=== PATIENT | male | born 1995 | race Native Hawaiian/Other Pacific Islander ===

== ENCOUNTER 2022-10-24 13:52 | Emergency (ER) | payer BC ==
--- NOTE | 2022-10-24 14:13 | ED EENT ---
History of Present Illness General Stated Complaint: EYE INFECTION Source: patient Exam Limitations: no limitations History of Present Illness Date Seen by Provider: Oct 24, 2022 Time Seen by Provider: 14:10 Initial Comments Patient Is a 27-year-old male who presents ED with right eyelid swelling and redness and pain. Patient states he noted some redness and swelling this past Thursday. Increased redness and swelling since Thursday. Noted some drainage today. Was seen at [facility] recommended come to ED for further evaluation. Denies of any pain with eye movement. Denies of any specific injury. Denies fever, chills, nausea, vomiting, diarrhea. Concern for abscess to his right upper eyelid. Allergies and Home Medications Allergies Coded Allergies: No Allergy Information Available (Unverified , 10/24/22) Patient Home Medication List Home Medication List Reviewed: Yes Cefdinir (Cefdinir) 300 Mg Capsule, 300 MG PO BID Prescribed by: SINA FERRO on 10/24/22 1604 Sulfamethoxazole/Trimethoprim (Bactrim Ds Tablet) 1 Each Tablet, 1 EACH PO BID Prescribed by: SINA FERRO on 10/24/22 1604 Review of Systems Review of Systems Constitutional: No chills, No diaphoresis, No malaise, No weakness Eyes: Denies Blurred Vision; Drainage; Denies Decreased Acuity; Other (Upper eyelid swelling erythema) Ears: Denies Dizziness, Denies Pain Nose: denies clots, denies congestion Mouth: denies clots, denies loose teeth Throat: denies pain, denies swelling Cardiovascular: No chest pain Gastrointestinal: No abdominal pain, No diarrhea, No nausea, No vomiting Musculoskeletal: No back pain, No gout Skin: change in color, other (right Upper eyelid swelling erythema) Physical Exam Vital Signs Vital Signs - First Documented 10/24/22 14:01 Temp 36.3 Pulse 108 Resp 16 B/P (MAP) 133/93 (106) Pulse Ox 100 O2 Delivery Room Air Height, Weight, BMI Height: '" Weight: lbs. oz. 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 Fluctuant mass inner eyelid with active drainage) Procedures/Interventions I&D : Site: right upper eyelid Blade Size: 11 I & D Procedure: betadine prep Progress Moderate amount of purulent drainage to the right medial upper eyelid. Progress/Results/Core Measures Results/Orders Lab Results Laboratory Tests Test 10/24/22 14:10 Range/Units White Blood Count 12.9 H 4.3-11.0 10^3/uL Red Blood Count 5.71 H 4.30-5.52 10^6/uL Hemoglobin 16.4 13.3-17.7 g/dL Hematocrit 49 40-54 % Mean Corpuscular Volume 86 80-99 fL Mean Corpuscular Hemoglobin 29 25-34 pg Mean Corpuscular Hemoglobin Concent 34 32-36 g/dL Red Cell Distribution Width 12.1 10.0-14.5 % Platelet Count 280 130-400 10^3/uL Mean Platelet Volume 10.6 9.0-12.2 fL Immature Granulocyte % (Auto) 0 % Neutrophils (%) (Auto) 74 42-75 % Lymphocytes (%) (Auto) 19 12-44 % Monocytes (%) (Auto) 5 0-12 % Eosinophils (%) (Auto) 1 0-10 % Basophils (%) (Auto) 1 0-10 % Neutrophils # (Auto) 9.6 H 1.8-7.8 10^3/uL Lymphocytes # (Auto) 2.4 1.0-4.0 10^3/uL Monocytes # (Auto) 0.7 0.0-1.0 10^3/uL Eosinophils # (Auto) 0.2 0.0-0.3 10^3/uL Basophils # (Auto) 0.1 0.0-0.1 10^3/uL Immature Granulocyte # (Auto) 0.0 0.0-0.1 10^3/uL Sodium Level 136 135-145 MMOL/L Potassium Level 3.9 3.6-5.0 MMOL/L Chloride Level 103 98-107 MMOL/L Carbon Dioxide Level 22 21-32 MMOL/L Anion Gap 11 5-14 MMOL/L Blood Urea Nitrogen 13 7-18 MG/DL Creatinine 1.19 0.60-1.30 MG/DL Estimat Glomerular Filtration Rate 85 BUN/Creatinine Ratio 11 Glucose Level 128 H 70-105 MG/DL Calcium Level 9.7 8.5-10.1 MG/DL Corrected Calcium 8.5-10.1 MG/DL Total Bilirubin 0.4 0.1-1.0 MG/DL Aspartate Amino Transf (AST/SGOT) 30 5-34 U/L Alanine Aminotransferase (ALT/SGPT) 49 0-55 U/L Alkaline Phosphatase 96 40-136 U/L Total Protein 8.7 H 6.4-8.2 GM/DL Albumin 4.6 H 3.2-4.5 GM/DL My Orders Orders - MEREDITH CHEN Cbc With Automated Diff (10/24/22 14:07) Comprehensive Metabolic Panel (10/24/22 14:07) Ct Maxillofacial W (10/24/22 14:07) Iohexol Injection (Omnipaque 350 Mg/Ml 1 (10/24/22 14:15) Ns (Ivpb) (Sodium Chloride 0.9% Ivpb Bag (10/24/22 14:15) Iohexol Injection (Omnipaque 350 Mg/Ml 1 (10/24/22 15:00) Received Contrast (Hold Metformin- Contr (10/24/22 15:00) Ns (Ivpb) (Sodium Chloride 0.9% Ivpb Bag (10/24/22 15:00) Wound Culture (10/24/22 15:28) Sulfamethoxazole/Trimet Ds Tab (Bactrim (10/24/22 16:06) Cephalexin Capsule (Keflex Capsule) (10/24/22 16:06) Medications Given in ED Current Medications Medications Dose Ordered Sig/Kalin Route Start Time Stop Time Status Last Admin Dose Admin Iohexol 100 ml ONCE ONCE IV 10/24/22 14:15 10/24/22 14:16 DC 10/24/22 15:16 75 ML Sodium Chloride 100 ml ONCE ONCE IV 10/24/22 14:15 10/24/22 14:16 DC 10/24/22 15:16 80 ML Vital Signs/I&O 10/24/22 10/24/22 14:01 16:26 Temp 36.3 Pulse 108 108 Resp 16 16 B/P (MAP) 133/93 (106) 120/77 Pulse Ox 100 100 O2 Delivery Room Air Room Air Departure Communication (PCP) Patient has redness and swelling to her right upper eyelid. No specific injury. Works at [employer]. Patient Does wear glasses at work. Differential diagnosis, upper eyelid abscess, periorbital cellulitis, orbital cellulitis. On exam he has redness and swelling to the upper eyelid. No lower eyelid swelling. Extraocular movements intact. No evidence erythematous injections. 1cm by 1cm Fluctuant mass noted to the left medial upper eyelid with active drainage. Denies of any visual changes. Differentiate between orbital and periorbital cellulitis CBC, CMP CT orbit was ordered. CBC showed slight elevated white blood count at 12. Chemistry grossly unremarkable. CT scan of the face showed Right periorbital cellulitis with fluid collection suspicious for abscess in the medial aspect of the upper eyelid. Left mastoid effusion and osteitis consistent with chronic inflammation. After examining the eyelid the abscess ruptured. Made a small incision while drainage was occurring. Moderate amount of purlent drainage. Wound culture pending. completely drained the abscess. Irrigated with saline. Left the area open. Patient noted improvement of pain. Patient states he was needing to go and was not able to give a dose of IV antibiotics. Prescribed Bactrim and Keflex oral here. Will discharge with cefdinir and Bactrim to cover MRSA, staph, strep. Recommend ENT follow-up in [address] Navarrete. If increased redness or swelling or pain with eye movement than patient will need to return back to ED. continue allowing drainage. Neosporin twice a day. Impression Primary Impression: Infection of eyelid Additional Impression: Abscess of eyelid Disposition: 01 HOME, SELF-CARE Condition: Stable Departure-Patient Inst. Decision time for Depature: 16:02 Referrals: DARY NAVARRETE MD [facility]/JORGE NO,LOCAL PHYSICIAN (PCP) Primary Care Physician Patient Instructions: Cellulitis (Skin Infection), Adult (DC) Add. Discharge Instructions: If increased redness or swelling need to return back to ED. Follow-up with ENT for further evaluation. Recommend rest. Topical Neosporin twice a day. Keep the area covered for the next 3 to 4 days. Scripts Sulfamethoxazole/Trimethoprim (Bactrim Ds Tablet) 1 Each Tablet 1 EACH PO BID for 7 Days, #14 TAB Prov: MEREDITH CHEN 10/24/22 Cefdinir (Cefdinir) 300 Mg Capsule 300 MG PO BID for 7 Days, #14 CAP Prov: MEREDITH CHEN 10/24/22 Work/School Note: Work Release Form Date Seen in the Emergency Department: Oct 24, 2022 Return to Work: Oct 28, 2022 MEREDITH CHEN Oct 24, 2022 14:13
[2022-10-24] MEDS ORDERED: NS 100 ML (IVPB) BAG IV ONE ×2 (14:15→15:00)
[2022-10-24] MEDS ORDERED: IOHEXOL 350 MG/ML 100 ML (OMNIPAQUE 350) VIAL IV ONE ×2 (14:15→15:00)
[2022-10-24 14:19] LABS: BASOPHILS # (AUTO) 0.1 10^3/uL (0.0-0.1); BASOPHILS % (AUTO) 1 % (0-10); EOSINOPHILS # (AUTO) 0.2 10^3/uL (0.0-0.3); EOSINOPHILS % (AUTO) 1 % (0-10); HEMATOCRIT 49 % (40-54); HEMOGLOBIN 16.4 g/dL (13.3-17.7); LYMPHOCYTES # (AUTO) 2.4 10^3/uL (1.0-4.0); LYMPHOCYTES % (AUTO) 19 % (12-44); MEAN CORPUSCULAR HEMOGLOBIN 29 pg (25-34); MEAN CORPUSCULAR HGB CONC 34 g/dL (32-36); MEAN CORPUSCULAR VOLUME 86 fL (80-99); MEAN PLATELET VOLUME 10.6 fL (9.0-12.2); MONOCYTES # (AUTO) 0.7 10^3/uL (0.0-1.0); MONOCYTES % (AUTO) 5 % (0-12); NEUTROPHILS # (AUTO) 9.6 10^3/uL (1.8-7.8); NEUTROPHILS % (AUTO) 74 % (42-75); PLATELET COUNT 280 10^3/uL (130-400); WHITE BLOOD COUNT 12.9 10^3/uL (4.3-11.0)
[2022-10-24 14:31] LABS: ALBUMIN 4.6 GM/DL (3.2-4.5); CHLORIDE 103 MMOL/L (98-107); POTASSIUM 3.9 MMOL/L (3.6-5.0); SODIUM 136 MMOL/L (135-145)
[2022-10-24 14:32] LABS: CALCIUM 9.7 MG/DL (8.5-10.1)
[2022-10-24 14:33] LABS: GLUCOSE 128 MG/DL (70-105); TOTAL PROTEIN 8.7 GM/DL (6.4-8.2)
[2022-10-24 14:34] LABS: CARBON DIOXIDE 22 MMOL/L (21-32)
[2022-10-24 14:35] LABS: BILIRUBIN,TOTAL 0.4 MG/DL (0.1-1.0)
[2022-10-24 14:36] LABS: ALKALINE PHOSPHATASE 96 U/L (40-136)
[2022-10-24 14:37] LABS: CREATININE SERUM 1.19 MG/DL (0.60-1.30); GFR ESTIMATED 85
[2022-10-24 14:38] LABS: BUN/CREATININE RATIO 11
[2022-10-24 14:40] LABS: ALANINE AMINOTRANSFERASE 49 U/L (0-55)
[2022-10-24] MEDS ORDERED: HOLD METFORMIN - RECEIVED CONTRAST 20 ML VIAL IV SCH (15:00)
--- NOTE | 2022-10-24 15:25 | Diagnostic Imaging Report ---
PROCEDURE: CT maxillofacial with contrast. TECHNIQUE: After intravenous administration of contrast, axial images were obtained through the face and reformatted into coronal and sagittal planes. Auto Exposure Controls were utilized during the CT exam to meet ALARA standards for radiation dose reduction. INDICATION: Orbital cellulitis, right eye. COMPARISON: None. FINDINGS: Soft tissue swelling overlying the right orbit. There is a circumscribed fluid collection in the medial aspect of the upper right eyelid measuring 1.7 x 0.8 cm. No postseptal inflammatory change. Left orbit is negative. No radiopaque foreign bodies. Osseous structures are intact. Multiple dental caries and periapical lucencies. No fractures. Left mastoid effusion and osteitis. IMPRESSION: 1. Right periorbital cellulitis with fluid collection suspicious for abscess in the medial aspect of the upper eyelid. 2. Left mastoid effusion and osteitis consistent with chronic inflammation. 3. Multiple dental caries and periapical lucencies. Dictated by: Dictated on workstation # [id number]
[2022-10-24] MEDS ORDERED: CEFD300C3 PO (16:04)
[2022-10-24] MEDS ORDERED: SULF1TAB38 PO (16:04)
[2022-10-24] MEDS ORDERED: TRIM/SULFAMETH 160/800 (SEPTRA DS) TAB PO STA (16:06)
[2022-10-24] MEDS ORDERED: CEPHALEXIN 250 MG (KEFLEX) CAP PO STA (16:06)
[2022-10-24 16:26] VITALS: BP 120/77
== END 2022-10-24 16:26 | disposition home or self-care (01) ==
LOC: ER 13:55
DX: H00.031 Abscess of right upper eyelid (principal); L03.213 Periorbital cellulitis; M86.9 Osteomyelitis, unspecified
CPT/HCPCS: 36415; 70487; 80053; 85025; 87070; 87077; 87205

== ENCOUNTER 2023-03-03 17:30 | Observation (INO) | payer BC ==
[~2023-03-03] VITALS: Ht 170 cm; Wt 71.6 kg
[~2023-03-03 17:30] MED LIST: CEFD300C3 PO; SULF1TAB38 PO
--- NOTE | 2023-03-03 18:07 | ED EENT ---
History of Present Illness General Chief Complaint: Oral/Throat Problems Stated Complaint: UPPER LIP ANOMALY Nursing Triage Note: PT UPPER LIP SWOLLEN, RED, DRAINING IN 3 PLACES. MOTHER PRESENT AND STATES IT STARTED SWELLING 4-5 DAYS AGO Source: patient, family Exam Limitations: language barrier History of Present Illness Date Seen by Provider: Mar 03, 2023 Time Seen by Provider: 17:45 Initial Comments 27-year-old male presents to the ER with swelling and drainage to his upper lip. States it started out small last and now has significant swelling. Denies known fevers. Patient was found to have a low-grade fever here. Denies known injury. Patient does have poor dentition. Denies any significant past medical history. Patient was seen here in October of this year for an abscess to his right eyelid. Allergies and Home Medications Allergies Coded Allergies: No Allergy Information Available (Unverified , 10/24/22) Patient Home Medication List Home Medication List Reviewed: Yes Cefdinir (Cefdinir) 300 Mg Capsule, 300 MG PO BID Prescribed by: SINA FERRO on 10/24/22 1604 Sulfamethoxazole/Trimethoprim (Bactrim Ds Tablet) 1 Each Tablet, 1 EACH PO BID Prescribed by: SINA FERRO on 10/24/22 1604 Review of Systems Review of Systems Constitutional: see HPI Past Alazyma-Zixozs-Jprnyk Hx Immunizations Up To Date Influenza Vaccine Up-to-Date: Yes; Up-to-Date Physical Exam Vital Signs Vital Signs - First Documented 03/03/23 17:40 Temp 38.0 Pulse 93 Resp 18 B/P (MAP) 129/88 (102) Pulse Ox 96 O2 Delivery Room Air Height, Weight, BMI Height: '" Weight: lbs. oz. kg; 28.00 BMI Method: General Appearance: WD/WN, no apparent distress Mouth/Throat: other (Abscess to left upper lip, large area of swelling, area of fluctuation, and area of induration, erythema also noted above lip. Poor dentition, multiple cavities) Neck: supple, normal inspection Cardiovascular: regular rate, rhythm Respiratory: lungs clear, normal breath sounds, no respiratory distress, no accessory muscle use Neurologic/Psychiatric: alert, normal mood/affect Skin: normal color, warm/dry Progress/Results/Core Measures Results/Orders Lab Results Laboratory Tests Test 10/24/23 18:10 Range/Units White Blood Count 19.2 H 4.3-11.0 10^3/uL Red Blood Count 4.98 4.30-5.52 10^6/uL Hemoglobin 14.4 13.3-17.7 g/dL Hematocrit 42 40-54 % Mean Corpuscular Volume 85 80-99 fL Mean Corpuscular Hemoglobin 29 25-34 pg Mean Corpuscular Hemoglobin Concent 34 32-36 g/dL Red Cell Distribution Width 12.3 10.0-14.5 % Platelet Count 300 130-400 10^3/uL Mean Platelet Volume 10.8 9.0-12.2 fL Immature Granulocyte % (Auto) 1 % Neutrophils (%) (Auto) 76 H 42-75 % Lymphocytes (%) (Auto) 12 12-44 % Monocytes (%) (Auto) 7 0-12 % Eosinophils (%) (Auto) 4 0-10 % Basophils (%) (Auto) 1 0-10 % Neutrophils # (Auto) 14.5 H 1.8-7.8 10^3/uL Lymphocytes # (Auto) 2.4 1.0-4.0 10^3/uL Monocytes # (Auto) 1.3 H 0.0-1.0 10^3/uL Eosinophils # (Auto) 0.9 H 0.0-0.3 10^3/uL Basophils # (Auto) 0.1 0.0-0.1 10^3/uL Immature Granulocyte # (Auto) 0.1 0.0-0.1 10^3/uL Neutrophils % (Manual) 75 % Lymphocytes % (Manual) 13 % Monocytes % (Manual) 4 % Eosinophils % (Manual) 8 % Blood Morphology Comment NORMAL Erythrocyte Sedimentation Rate 78 H 0-15 MM/HR Sodium Level 135 135-145 MMOL/L Potassium Level 3.1 L 3.6-5.0 MMOL/L Chloride Level 98 98-107 MMOL/L Carbon Dioxide Level 25 21-32 MMOL/L Anion Gap 12 5-14 MMOL/L Blood Urea Nitrogen 10 7-18 MG/DL Creatinine 1.08 0.60-1.30 MG/DL Estimat Glomerular Filtration Rate 96 BUN/Creatinine Ratio 9 Glucose Level 115 H 70-105 MG/DL Lactic Acid Level 0.87 0.50-2.00 MMOL/L Calcium Level 9.7 8.5-10.1 MG/DL Corrected Calcium 9.7 8.5-10.1 MG/DL Total Bilirubin 0.6 0.1-1.0 MG/DL Aspartate Amino Transf (AST/SGOT) 96 H 5-34 U/L Alanine Aminotransferase (ALT/SGPT) 213 H 0-55 U/L Alkaline Phosphatase 160 H 40-136 U/L C-Reactive Protein High Sensitivity 18.64 H 0.00-0.50 MG/DL Total Protein 9.0 H 6.4-8.2 GM/DL Albumin 4.0 3.2-4.5 GM/DL My Orders Orders - LUNA WHYTE APRN Cbc And Automated Diff (03/03/23 17:58) Comprehensive Metabolic Panel (03/03/23 17:58) Lactic Acid Analyzer (03/03/23 17:58) Hs C Reactive Protein (03/03/23 17:58) Erythrocyte Sedimentation Rate (03/03/23 17:58) Ed Iv/Invasive Line Start (03/03/23 17:58) Ct Neck (Soft Tissue) W (03/03/23 18:01) Manual Differential (03/03/23 18:10) Iohexol Injection (Omnipaque 350 Mg/Ml 1 (03/03/23 18:30) Received Contrast (Hold Metformin- Contr (03/03/23 18:30) Ns (Ivpb) 100 Ml (Sodium Chloride 0.9% 1 (03/03/23 18:30) Clindamycin 600 Mg/50 Ml Ivpb (Clindamyc (03/03/23 19:15) Fentanyl Injection (Fentanyl Injection (03/03/23 19:15) Drug Screen Stat (Urine) (03/03/23 19:20) Ns Iv 1000 Ml (Ns Iv 1000 Ml) (03/03/23 19:30) Ed Admission (Communication) (03/03/23 19:20) Medications Given in ED Current Medications Medications Dose Ordered Sig/Kalin Route Start Time Stop Time Status Last Admin Dose Admin Clindamycin Phosphate/Dextrose 50 ml @ 100 mls/hr ONCE ONCE IV 03/03/23 19:15 03/03/23 19:44 DC 03/03/23 19:32 100 MLS/HR Fentanyl Citrate 50 mcg ONCE ONCE IVP 03/03/23 19:15 03/03/23 19:16 DC 03/03/23 19:32 50 MCG Iohexol 75 ml ONCE ONCE IV 03/03/23 18:30 03/03/23 18:31 DC 03/03/23 18:28 75 ML Sodium Chloride 100 ml ONCE ONCE IV 03/03/23 18:30 03/03/23 18:31 DC 03/03/23 18:29 80 ML Vital Signs/I&O 03/03/23 03/03/23 17:40 18:13 Temp 38.0 38.0 Pulse 93 90 Resp 18 20 B/P (MAP) 129/88 (102) 128/74 Pulse Ox 96 95 O2 Delivery Room Air Room Air Blood Pressure Mean: 102 Progress Progress Note : Progress Note Patient seen and evaluated, resting comfortably in bed, no acute distress. Bas ed on exam and symptoms, work-up initiated including CBC, CMP, CRP, sed rate, lactic acid, and CT soft tissue neck. I called Dr. Souza, surgery, regarding abscess. He states that I will likely need to consult ENT or oral maxillofacial surgery. [address] reviewed. CBC shows elevated RBC 19.2. ESR elevated 78. CMP shows decreased potassium 3.1. AST elevated 96, ALT elevated to 13. CRP elevated 18.6. Total protein elevated 9.0. Progressive normal. CT shows marked soft tissue swelling in the premaxillary soft tissues with ill-defined low-attenuation, consistent with early abscess formation. This does appear to be multilocular. No soft tissue gas identified. I called and spoke with Dr. Osullivan, oral maxillofacial surgeon, regarding patient. He agrees to see patient tomorrow. I called and spoke with Dr. Dewey, hospitalist, regarding admission. She agrees to admit patient. She will place admission orders. Diagnostic Imaging Diagonstic Imaging: CT Plain Films/CT/US/NM/MRI: other (soft tissue neck) Comments [facility]. [place], [place] NAME: NICHOLAS YOUNGER [facility] REC#: [id number] PT STATUS: REG ER : 1995 PHYSICIAN: LUNA WHYTE APRN ADMIT DATE: 03/03/23/ER Signed Date of Exam:03/03/23 CT NECK (SOFT TISSUE) W PROCEDURE: CT neck soft tissue with contrast. TECHNIQUE: Multiple contiguous axial images were obtained through the neck after the administration of contrast. Auto Exposure Controls were utilized during the CT exam to meet ALARA standards for radiation dose reduction. INDICATION: Facial swelling. COMPARISON: No prior studies are available for comparison. FINDINGS: The visualized intracranial structures are unremarkable. The posterior nasopharynx and oropharynx are unremarkable. Parapharyngeal fat planes are preserved. The epiglottis and larynx are unremarkable. No thyroid mass is detected. Bilateral submandibular and parotid glands appear to be symmetric. There is marked soft tissue swelling at midline face at the level of the maxilla. Soft tissue thickening measures up to 2.6 cm. There are ill-defined areas of low attenuation within the areas of soft tissues swelling, suggestive of fluid and perhaps early abscess formation. This appears to be septated and multilocular. No gas within the soft tissues is identified. There are enlarged lymph nodes in the submandibular regions bilaterally. No other fluid collections are identified. IMPRESSION: There is marked soft tissue swelling in premaxillary soft tissues with ill-defined low attenuation, consistent with perhaps very early abscess formation. This does appear to be multilocular. No soft tissue gas identified. There is probable reactive lymphadenopathy in the submandibular region. Dictated by: Dictated on workstation # [id number] Dict: 03/03/23 1833 Trans: 03/03/23 184 [id number] [id number] Interpreted by: SIVA ONEILL MD Electronically signed by: SIVA ONEILL MD 03/03/231840 Departure Communication (Admissions) Time/Spoke to Admitting Phy: 19:17 Dr. Dewey, hospitalist, see progress note. Time/Spoke to Consulting Phy: 18:51 Dr. Osullivan, oral maxillofacial surgeon, see progress note. Impression Primary Impression: Abscess of lip Disposition: ADMITTED INPATIENT Condition: Stable Admissions Decision to Admit Reason: Admit from ER (General) Decision to Admit/Date: Mar 03, 2023 Time/Decision to Admit Time: 18:51 Departure-Patient Inst. Referrals: NO,LOCAL PHYSICIAN (PCP/Family) Primary Care Physician LUNA WHYTE APRN Mar 03, 2023 18:07
[2023-03-03 18:17] LABS: HEMATOCRIT 42 % (40-54); HEMOGLOBIN 14.4 g/dL (13.3-17.7); LYMPHOCYTES % (AUTO) 12 % (12-44); MEAN CORPUSCULAR HEMOGLOBIN 29 pg (25-34); MEAN CORPUSCULAR HGB CONC 34 g/dL (32-36); MEAN CORPUSCULAR VOLUME 85 fL (80-99); MEAN PLATELET VOLUME 10.8 fL (9.0-12.2); NEUTROPHILS % (AUTO) 76 % (42-75); PLATELET COUNT 300 10^3/uL (130-400); WHITE BLOOD COUNT 19.2 10^3/uL (4.3-11.0)
[2023-03-03 18:18] LABS: BASOPHILS # (AUTO) 0.1 10^3/uL (0.0-0.1); BASOPHILS % (AUTO) 1 % (0-10); EOSINOPHILS # (AUTO) 0.9 10^3/uL (0.0-0.3); EOSINOPHILS % (AUTO) 4 % (0-10); LYMPHOCYTES # (AUTO) 2.4 10^3/uL (1.0-4.0); MONOCYTES # (AUTO) 1.3 10^3/uL (0.0-1.0); MONOCYTES % (AUTO) 7 % (0-12); NEUTROPHILS # (AUTO) 14.5 10^3/uL (1.8-7.8)
[2023-03-03 18:30] LABS: POTASSIUM 3.1 MMOL/L (3.6-5.0)
[2023-03-03] MEDS ORDERED: IOHEXOL 350 MG/ML 100 ML (OMNIPAQUE 350) VIAL IV ONE (18:30)
[2023-03-03] MEDS ORDERED: HOLD METFORMIN - RECEIVED CONTRAST 20 ML VIAL IV SCH (18:30)
[2023-03-03] MEDS ORDERED: NS 100 ML (IVPB) BAG IV ONE (18:30)
[2023-03-03 18:31] LABS: CALCIUM 9.7 MG/DL (8.5-10.1)
[2023-03-03 18:34] LABS: BILIRUBIN,TOTAL 0.6 MG/DL (0.1-1.0)
[2023-03-03 18:36] LABS: CREATININE SERUM 1.08 MG/DL (0.60-1.30)
--- NOTE | 2023-03-03 18:42 | Diagnostic Imaging Report ---
PROCEDURE: CT neck soft tissue with contrast. TECHNIQUE: Multiple contiguous axial images were obtained through the neck after the administration of contrast. Auto Exposure Controls were utilized during the CT exam to meet ALARA standards for radiation dose reduction. INDICATION: Facial swelling. COMPARISON: No prior studies are available for comparison. FINDINGS: The visualized intracranial structures are unremarkable. The posterior nasopharynx and oropharynx are unremarkable. Parapharyngeal fat planes are preserved. The epiglottis and larynx are unremarkable. No thyroid mass is detected. Bilateral submandibular and parotid glands appear to be symmetric. There is marked soft tissue swelling at midline face at the level of the maxilla. Soft tissue thickening measures up to 2.6 cm. There are ill-defined areas of low attenuation within the areas of soft tissues swelling, suggestive of fluid and perhaps early abscess formation. This appears to be septated and multilocular. No gas within the soft tissues is identified. There are enlarged lymph nodes in the submandibular regions bilaterally. No other fluid collections are identified. IMPRESSION: There is marked soft tissue swelling in premaxillary soft tissues with ill-defined low attenuation, consistent with perhaps very early abscess formation. This does appear to be multilocular. No soft tissue gas identified. There is probable reactive lymphadenopathy in the submandibular region. Dictated by: Dictated on workstation # [id number]
[2023-03-03 18:44] LABS: EOSINOPHILS % (MANUAL) 8 %; LYMPHOCYTES % (MANUAL) 13 %; MONOCYTES % (MANUAL) 4 %; NEUTROPHILS % (MANUAL) 75 %
[2023-03-03 18:45] LABS: ERYTHROCYTE SEDIMENTATION RATE 78 MM/HR (0-15); RBC MORPH NORMAL
[2023-03-03] MEDS ORDERED: CLINDAMYCIN 600 MG/50 ML IVPB 50 ML IV ONE (19:15)
[2023-03-03] MEDS ORDERED: fentaNYL INJECTION 100 MCG/2 ML VIAL IVP ONE (19:15)
[2023-03-03] MEDS ORDERED: NS IV 1000 ML 1,000 ML IV SCH (19:30)
[2023-03-03 20:22] VITALS: BP 151/70
[2023-03-03] MEDS ORDERED: diphenhydrAMINE 25 MG TABLET PO PRN (20:30)
[2023-03-03] MEDS ORDERED: KETOROLAC INJ 15 MG/ML VIAL IV PRN (20:30)
[2023-03-03] MEDS ORDERED: MELATONIN 3 MG TABLET PO PRN (20:30)
[2023-03-03] MEDS ORDERED: LACTULOSE SYRUP 10GM/15ML 30ML UDC PO PRN (20:30)
[2023-03-03] MEDS ORDERED: hydrALAZINE INJECTION 20 MG/ML VIAL IV PRN (20:30)
[2023-03-03] MEDS ORDERED: CALCIUM CARBONATE 500 MG CHEW TABLET PO PRN (20:30)
[2023-03-03] MEDS ORDERED: ACETAMINOPHEN 325 MG TABLET PO PRN (20:30)
[2023-03-03] MEDS ORDERED: ALPRAZolam 0.5 MG TABLET PO PRN (20:30)
[2023-03-03] MEDS ORDERED: ANTACID SUSPENSION 30 ML UDC PO PRN (20:30)
[2023-03-03] MEDS ORDERED: oxyCODONE IMMEDIATE RELEASE 5 MG TABLET PO PRN (20:30)
[2023-03-03] MEDS ORDERED: diphenhydrAMINE INJ 50 MG/ML VIAL IVP PRN (20:30)
[2023-03-03] MEDS ORDERED: ONDANSETRON 4 MG ORAL DISSOLVE TABLET PO PRN (20:30)
[2023-03-03] MEDS ORDERED: HYDROmorphone INJECTION 2 MG/ML VIAL IV PRN (20:30)
[2023-03-03] MEDS ORDERED: ONDANSETRON INJECTION 4 MG/2 ML (SDV) IV PRN (20:30)
[2023-03-03] MEDS ORDERED: BISACODYL 10 MG SUPPOSITORY PR PRN (20:30)
[2023-03-03] MEDS ORDERED: MILK OF MAGNESIA 400 MG/5 ML 30 ML UDC PO PRN (20:30)
[2023-03-03] MEDS ORDERED: NS IV 1000 ML 1,000 ML ONE (20:39)
[2023-03-03 20:51] VITALS: BP 151/70
[2023-03-03] MEDS: NS IV 1000 ML 1,000 ML IV SCH (21:22)
[2023-03-03] MEDS: SENNOSIDES 8.6 MG TABLET PO SCH (21:43)
[2023-03-03] MEDS: DOCUSATE SODIUM 100 MG CAPSULE PO SCH (21:43)
[2023-03-03] MEDS: ENOXAPARIN 40 MG/0.4 ML SYRINGE SC SCH (21:45)
[2023-03-03 23:31] VITALS: BP 110/66
[2023-03-04] VITALS (11 sets, daily range): BP systolic 101–123; BP diastolic 55–73
[2023-03-04] MEDS: CLINDAMYCIN 600 MG/50 ML IVPB 50 ML IV SCH ×3 (03:16→19:22)
[2023-03-04 05:12] LABS: BASOPHILS # (AUTO) 0.1 10^3/uL (0.0-0.1); BASOPHILS % (AUTO) 1 % (0-10); EOSINOPHILS # (AUTO) 0.9 10^3/uL (0.0-0.3); EOSINOPHILS % (AUTO) 6 % (0-10); HEMATOCRIT 40 % (40-54); HEMOGLOBIN 13.4 g/dL (13.3-17.7); LYMPHOCYTES % (AUTO) 14 % (12-44); MEAN CORPUSCULAR HEMOGLOBIN 29 pg (25-34); MEAN CORPUSCULAR HGB CONC 34 g/dL (32-36); MEAN CORPUSCULAR VOLUME 85 fL (80-99); MEAN PLATELET VOLUME 10.6 fL (9.0-12.2); MONOCYTES # (AUTO) 1.1 10^3/uL (0.0-1.0); MONOCYTES % (AUTO) 7 % (0-12); NEUTROPHILS % (AUTO) 73 % (42-75); PLATELET COUNT 286 10^3/uL (130-400); WHITE BLOOD COUNT 15.2 10^3/uL (4.3-11.0)
[2023-03-04] MEDS: NS IV 1000 ML 1,000 ML IV SCH ×3 (05:29→19:22)
[2023-03-04 05:43] LABS: ALBUMIN 3.5 GM/DL (3.2-4.5); BILIRUBIN,TOTAL 0.6 MG/DL (0.1-1.0); CREATININE SERUM 0.96 MG/DL (0.60-1.30); POTASSIUM 3.2 MMOL/L (3.6-5.0); TOTAL PROTEIN 7.6 GM/DL (6.4-8.2)
--- NOTE | 2023-03-04 08:33 | History & Physical ---
SANDY MACKEY 03/04/23 0833: History of Present Illness History of Present Illness Reason for visit/HPI Hugh is a 27 year old male who presents with swelling and drainage to his upper lip. Patient speaks limited Frisian. Patient states that it has started - and that it has been increasing swelling since. Patient denies chest pain, or shortness of breath. Patient denies pain currently. Nurses said that he refused pain medication. Dr Osullivan- Dentist- has been paged for it. Patient says he is comfortable. Date of Admission Mar 03, 2023 at 20:22 Date Seen by a Provider: Mar 04, 2023 Time Seen by a Provider: 08:31 I consulted on this patient on 03/04/23 08:31 Attending Physician Cheyanne,Local Physician Admitting Physician Admitting Physician: Cokoie Carolina DO Attending Physician: Cookie Carolina DO Consult Allergies and Home Medications Allergies Coded Allergies: No Known Allergies (Verified Allergy, Unknown, 03/04/23) Patient Home Medication List Cefdinir (Cefdinir) 300 Mg Capsule, 300 MG PO BID Prescribed by: SINA FERRO on 10/24/22 1604 Sulfamethoxazole/Trimethoprim (Bactrim Ds Tablet) 1 Each Tablet, 1 EACH PO BID Prescribed by: SINA FERRO on 10/24/22 1604 Past Zvcdbsg-Lbrdlb-Iyquoo Hx Patient Social History Tobacco Use?: No Substance use?: No Alcohol Use?: No Pt feels they are or have been: No Current Status Advance Directives: No Communicates: Verbally Primary Language: DJIBOUTIAN Preferred Spoken Language: [facility] Is interpretation needed?: Yes Implanted or Applied Medical D: None Review of Systems Constitutional: no symptoms reported; No chills, No fever EENTM: no symptoms reported; No ear discharge, No hearing loss Respiratory: no symptoms reported; No cough Cardiovascular: no symptoms reported Gastrointestinal: no symptoms reported; No abdominal pain Musculoskeletal: No muscle twitching, No muscle weakness Skin: other (lip abscess- purulent) Psychiatric/Neurological: No Symptoms Reported Physical Exam Vital Signs Vital Signs - First Documented 03/03/23 03/03/23 17:40 20:51 Temp 38.0 Pulse 93 Resp 18 B/P (MAP) 129/88 (102) Pulse Ox 96 O2 Delivery Room Air FiO2 21 Capillary Refill : Less Than 3 Seconds Height, Weight, BMI Height: '" Weight: lbs. oz. kg; 24.77 BMI Method: General Appearance: No Apparent Distress HEENT: TMs Normal Neck: Full Range of Motion, Normal Inspection Respiratory: Lungs Clear Cardiovascular: Regular Rate, Rhythm, No Edema Gastrointestinal: Normal Bowel Sounds, No Organomegaly Back: No CVA Tenderness Extremity: Normal Capillary Refill, Normal Inspection Neurologic/Psychiatric: Alert, Oriented x3 Assessment/Plan Assessment and Plan Assessment: Lip abscess secondary to poor dentition Hypokalmia Plan: IV Fluids IV Antibiotics IV Electrolytes Consult Surgery COOKIE CAROLINA DO 03/04/232048: History of Present Illness History of Present Illness Reason for visit/HPI CC: Upper lip abscess HPI: This is a 27yoM who presents with severe abscess of his upper lip. IV abx initiated and Dr Osullivan will perform I&D Allergies and Home Medications Allergies Coded Allergies: No Known Allergies (Verified Allergy, Unknown, 03/04/23) Patient Home Medication List Home Medication List Reviewed: Yes Cefdinir (Cefdinir) 300 Mg Capsule, 300 MG PO BID Prescribed by: SINA FERRO on 10/24/22 1604 Sulfamethoxazole/Trimethoprim (Bactrim Ds Tablet) 1 Each Tablet, 1 EACH PO BID Prescribed by: SINA FERRO on 10/24/22 1604 Past Fcxsivp-Qtdvib-Ouvocs Hx Patient Social History Marrital Status: Review of Systems Constitutional: see HPI Physical Exam HEENT: Other (upper lip with severe edema and erythema) Respiratory: Lungs Clear Cardiovascular: Regular Rate, Rhythm Assessment/Plan Assessment and Plan Lip abscess Plan: OR IV abx Admission Diagnosis Admission Status: Observation Supervisory-Addendum Brief Verification & Attestation Participated in pt care: history, MDM, physical Personally performed: exam, history, MDM, supervision of care Care discussed with: Medical Student Procedures: n/a Results interpretation: Verified all documentation Verification and Attestation of Medical Student E/M Service A medical student performed and documented this service in my presence. I reviewed and verified all information documented by the medical student and made modifications to such information, when appropriate. I personally performed the physical exam and medical decision making. Cookie Carolina, Mar 04, 2023,20:49 SANDY MACKEY Mar 04, 2023 08:33 COOKIE CAROLINA DO Mar 04, 2023 20:49
[2023-03-04] MEDS: SENNOSIDES 8.6 MG TABLET PO SCH ×2 (08:40→19:22)
[2023-03-04] MEDS: DOCUSATE SODIUM 100 MG CAPSULE PO SCH ×2 (08:41→19:22)
[2023-03-04] MEDS: POTASSIUM CL 10MEQ/50ML IVPB 50 ML IV SCH ×4 (11:56→15:31)
--- NOTE | 2023-03-04 13:29 | Progress Note ---
SANDY MACKEY 03/04/23 1329: COOKIE CAROLINA DO 03/04/234: Supervisory-Addendum Brief Verification & Attestation Participated in pt care: history, MDM, physical Personally performed: exam, history, MDM, supervision of care Care discussed with: Medical Student Procedures: n/a Results interpretation: Verified all documentation Verification and Attestation of Medical Student E/M Service A medical student performed and documented this service in my presence. I reviewed and verified all information documented by the medical student and made modifications to such information, when appropriate. I personally performed the physical exam and medical decision making. Cookie Carolina, Mar 04, 2023,20:44 SANDY MACKEY Mar 04, 2023 13:29 COOKIE CAROLINA DO Mar 04, 2023 20:44
[2023-03-04] MEDS ORDERED: LACTATED RINGERS 1,000 ML 1,000 ML IV PRN (14:45)
[2023-03-04] MEDS ORDERED: ROPIVACAINE 5 MG/ML 30ML VIAL ONE (15:37)
[2023-03-04] MEDS ORDERED: LIDOCAINE 2% w/EPI 1:100,000 20 ML VIAL ONE (15:37)
[2023-03-04] MEDS ORDERED: ceFAZolin INJECTION 2,000 MG ONE (16:03)
[2023-03-04] MEDS ORDERED: fentaNYL INJECTION 100 MCG/2 ML VIAL ONE (16:05)
[2023-03-04] MEDS ORDERED: MIDAZOLAM INJ 2 MG/2 ML VIAL ONE (16:05)
[2023-03-04] MEDS ORDERED: SUCCINYLCHOLINE INJ 20 MG/1 ML 10 ML VIAL ONE (16:22)
[2023-03-04] MEDS ORDERED: ceFAZolin INJECTION 2,000 MG in NS (IVPB) 50 ML 50 ML IV ONE (16:30)
[2023-03-04] MEDS ORDERED: ONDANSETRON INJECTION 4 MG/2 ML (SDV) ONE (16:49)
[2023-03-04] MEDS ORDERED: LIDOCAINE PF 2% 5 ML VIAL ONE (16:49)
[2023-03-04] MEDS ORDERED: proPOfol INJECTION 200 MG/20 ML VIAL IV ONE (16:49)
--- NOTE | 2023-03-04 17:06 | Progress Note-Pre Operative ---
Pre-Operative Progress Note Date of Available H&P: Mar 04, 2023 Date H&P Reviewed: Mar 04, 2023 Time H&P Reviewed: 15:00 Changes from last HP none Pre-Operative Diagnosis: edema/abcess upper lip, carious maxillary teeth HALEY WEBER DDS Mar 04, 2023 17:06
[2023-03-04] MEDS ORDERED: HYDROcodone/APAP 7.5MG-325 MG/15 ML ORAL SOLN PO PRN (17:15)
[2023-03-04] MEDS ORDERED: morphine INJ 10 MG/ML 1ML (SYR OR VIAL) IVP ONE (17:30)
[2023-03-04] MEDS ORDERED: morphine INJ 10 MG/ML 1ML (SYR OR VIAL) ONE (17:31)
[2023-03-04] MEDS: dexAMETHasone INJ 4 MG/ML SDV IV SCH ×2 (18:22→23:20)
[2023-03-04] MEDS: ENOXAPARIN 40 MG/0.4 ML SYRINGE SC SCH (19:22)
[2023-03-04] MEDS: ceFAZolin INJECTION 1,000 MG in NS (IVPB) 50 ML 50 ML IV SCH (23:20)
[2023-03-05] VITALS: BP 103/59
[2023-03-05] MEDS: CLINDAMYCIN 600 MG/50 ML IVPB 50 ML IV SCH ×2 (04:12→11:32)
[2023-03-05] MEDS: NS IV 1000 ML 1,000 ML IV SCH ×2 (04:12→12:46)
[2023-03-05 04:16] VITALS: BP 114/73
[2023-03-05] MEDS: dexAMETHasone INJ 4 MG/ML SDV IV SCH ×2 (05:32→11:32)
[2023-03-05 06:01] LABS: BASOPHILS % (AUTO) 0 % (0-10); EOSINOPHILS % (AUTO) 0 % (0-10); HEMATOCRIT 40 % (40-54); HEMOGLOBIN 13.2 g/dL (13.3-17.7); LYMPHOCYTES # (AUTO) 0.9 10^3/uL (1.0-4.0); LYMPHOCYTES % (AUTO) 9 % (12-44); MEAN CORPUSCULAR HEMOGLOBIN 29 pg (25-34); MEAN CORPUSCULAR HGB CONC 33 g/dL (32-36); MEAN CORPUSCULAR VOLUME 86 fL (80-99); MEAN PLATELET VOLUME 10.8 fL (9.0-12.2); MONOCYTES # (AUTO) 0.1 10^3/uL (0.0-1.0); MONOCYTES % (AUTO) 1 % (0-12); NEUTROPHILS # (AUTO) 8.4 10^3/uL (1.8-7.8); NEUTROPHILS % (AUTO) 89 % (42-75); PLATELET COUNT 322 10^3/uL (130-400); WHITE BLOOD COUNT 9.4 10^3/uL (4.3-11.0)
[2023-03-05 06:02] LABS: ALBUMIN 3.4 GM/DL (3.2-4.5)
[2023-03-05 06:03] LABS: POTASSIUM 3.9 MMOL/L (3.6-5.0)
[2023-03-05 06:04] LABS: CALCIUM 9.2 MG/DL (8.5-10.1)
[2023-03-05 06:05] LABS: TOTAL PROTEIN 7.8 GM/DL (6.4-8.2)
[2023-03-05 06:07] LABS: BILIRUBIN,TOTAL 0.4 MG/DL (0.1-1.0)
[2023-03-05 06:08] LABS: CREATININE SERUM 0.89 MG/DL (0.60-1.30)
[2023-03-05 07:36] VITALS: BP 114/71
--- NOTE | 2023-03-05 08:20 | Anesthesia-General Post-Op ---
General Patient Condition Mental Status/LOC: Same as Preop Cardiovascular: Satisfactory Nausea/Vomiting: Absent Respiratory: Satisfactory Pain: Controlled Complications: Absent Post Op Complications Complications None Follow Up Care/Instructions Patient Instructions None needed. Anesthesia/Patient Condition Patient Condition Patient is doing well, no complaints, stable vital signs, no apparent adverse anesthesia problems. No complications reported per nursing. TY LIVINGSTON CRNA Mar 05, 2023 08:20
[2023-03-05] MEDS: ceFAZolin INJECTION 1,000 MG in NS (IVPB) 50 ML 50 ML IV SCH (08:54)
[2023-03-05] MEDS: DOCUSATE SODIUM 100 MG CAPSULE PO SCH (08:54)
[2023-03-05] MEDS: SENNOSIDES 8.6 MG TABLET PO SCH (08:54)
--- NOTE | 2023-03-05 11:33 | Progress Note ---
SANDY MACKEY 03/05/23 1132: Progress Note Hugh is a 27 year old male who presented with lip swelling and drainage from his upper lip. Patient stated that it had started the previous - and throughout the week the swelling had increased swelling. Patient had draining from 3 different portions in his mouth. Patient has poor denition- and is mis sing several teeth in the front. There is also a language barrier present. Dr Osullivan-oral maxillary surgeon was consulted for the patient's abscess. Surgery was performed on 03/04/2023. There were no complications. Patient denied chest pain, fevers, or shortness of breath throughout his pain. Patient denied pain throughout his stay. Patient is prepared for discharge and is comfortable- ready to go home. COOKIE CAROLINA DO 03/06/23 0453: Supervisory-Addendum Brief Verification & Attestation Participated in pt care: history, MDM, physical Personally performed: exam, history, MDM, supervision of care Care discussed with: Medical Student Procedures: n/a Results interpretation: Verified all documentation Verification and Attestation of Medical Student E/M Service A medical student performed and documented this service in my presence. I reviewed and verified all information documented by the medical student and made modifications to such information, when appropriate. I personally performed the physical exam and medical decision making. Cookie Carolina, Mar 06, 2023,04:53 SANDY MACKEY Mar 05, 2023 11:32 COOKIE CAROLINA DO Mar 06, 2023 04:53
[2023-03-05 11:34] VITALS: BP 116/68
[2023-03-05] MEDS ORDERED: CLIN-144 PO (11:38)
--- NOTE | 2023-03-05 11:38 | Discharge Summary ---
Diagnosis/Chief Complaint Date of Admission Mar 03, 2023 at 20:22 Date of Discharge Discharge Date: Mar 05, 2023 Discharge Diagnosis Upper lip abscess Reason Hospital Visit CC: Upper lip abscess HPI: This is a 27yoM who presents with severe abscess of his upper lip. IV abx initiated and Dr Osullivan will perform I&D Discharge Summary Discharge Physical Examination Allergies: Coded Allergies: No Known Allergies (Verified Allergy, Unknown, 03/04/23) Vitals & I&Os Vital Signs Date Time Temp Pulse Resp B/P (MAP) Pulse Ox O2 Delivery O2 Flow Rate FiO2 03/05/23 13:15 36.9 71 16 116/68 98 Room Air 0.00 03/03/23 20:51 21 General Appearance: Alert, Oriented X3, Cooperative HEENT: Other (upper lip edema) Hospital Course Was the Problem List Reviewed?: Yes Hugh is a 27 year old male who presented with lip swelling and drainage from his upper lip. Patient stated that it had started the previous - and throughout the week the swelling had increased swelling. Patient had draining from 3 different portions in his mouth. Patient has poor denition- and is missing several teeth in the front. There is also a language barrier present. Dr Osullivan-oral maxillary surgeon was consulted for the patient's abscess. Surgery was performed on 03/04/2023. There were no complications. Patient denied chest pain, fevers, or shortness of breath throughout his pain. Patient denied pain throughout his stay. Patient is prepared for discharge and is comfortable- ready to go home. SANDY MACKEY Labs (last 24 hrs) Laboratory Tests 03/03/23 18:10: White Blood Count 19.2H, Red Blood Count 4.98, Hemoglobin 14.4, Hematocrit 42, Mean Corpuscular Volume 85, Mean Corpuscular Hemoglobin 29, Mean Corpuscular Hemoglobin Concent 34, Red Cell Distribution Width 12.3, Platelet Count 300, Mean Platelet Volume 10.8, Immature Granulocyte % (Auto) 1, Neutrophils (%) (Auto) 76H, Lymphocytes (%) (Auto) 12, Monocytes (%) (Auto) 7, Eosinophils (%) (Auto) 4, Basophils (%) (Auto) 1, Neutrophils # (Auto) 14.5H, Lymphocytes # (Auto) 2.4, Monocytes # (Auto) 1.3H, Eosinophils # (Auto) 0.9H, Basophils # (Auto) 0.1, Immature Granulocyte # (Auto) 0.1, Neutrophils % (Manual) 75, Lymphocytes % (Manual) 13, Monocytes % (Manual) 4, Eosinophils % (Manual) 8, Blood Morphology Comment NORMAL, Erythrocyte Sedimentation Rate 78H, Sodium Level 135, Potassium Level 3.1L, Chloride Level 98, Carbon Dioxide Level 25, Anion Gap 12, Blood Urea Nitrogen 10, Creatinine 1.08, Estimat Glomerular Filtration Rate 96, BUN/Creatinine Ratio 9, Glucose Level 115H, Lactic Acid Level 0.87, Calcium Level 9.7, Corrected Calcium 9.7, Total Bilirubin 0.6, Aspartate Amino Transf (AST/SGOT) 96H, Alanine Aminotransferase (ALT/SGPT) 213H, Alkaline Phosphatase 160H, C-Reactive Protein High Sensitivity 18.64H, Total Protein 9.0H, Albumin 4.0 03/04/23 05:05: White Blood Count 15.2H, Red Blood Count 4.68, Hemoglobin 13.4, Hematocrit 40, Mean Corpuscular Volume 85, Mean Corpuscular Hemoglobin 29, Mean Corpuscular Hemoglobin Concent 34, Red Cell Distribution Width 12.3, Platelet Count 286, Mean Platelet Volume 10.6, Immature Granulocyte % (Auto) 0, Neutrophils (%) (Auto) 73, Lymphocytes (%) (Auto) 14, Monocytes (%) (Auto) 7, Eosinophils (%) (Auto) 6, Basophils (%) (Auto) 1, Neutrophils # (Auto) 11.0H, Lymphocytes # (Auto) 2.0, Monocytes # (Auto) 1.1H, Eosinophils # (Auto) 0.9H, Basophils # (Auto) 0.1, Immature Granulocyte # (Auto) 0.1, Sodium Level 140, Potassium Level 3.2L, Chloride Level 105, Carbon Dioxide Level 24, Anion Gap 11, Blood Urea Nitrogen 10, Creatinine 0.96, Estimat Glomerular Filtration Rate 110, BUN/Creatinine Ratio 10, Glucose Level 104, Calcium Level 9.0, Corrected Calcium 9.4, Total Bilirubin 0.6, Aspartate Amino Transf (AST/SGOT) 60H, Alanine Aminotransferase (ALT/SGPT) 147H, Alkaline Phosphatase 134, Total Protein 7.6, Albumin 3.5 03/04/23 13:30: SARS-CoV-2 RNA (RT-PCR) Not Detected 03/05/23 05:04: White Blood Count 9.4, Red Blood Count 4.63, Hemoglobin 13.2L, Hematocrit 40, Mean Corpuscular Volume 86, Mean Corpuscular Hemoglobin 29, Mean Corpuscular Hemoglobin Concent 33, Red Cell Distribution Width 12.2, Platelet Count 322, Mean Platelet Volume 10.8, Immature Granulocyte % (Auto) 1, Neutrophils (%) (Auto) 89H, Lymphocytes (%) (Auto) 9L, Monocytes (%) (Auto) 1, Eosinophils (%) (Auto) 0, Basophils (%) (Auto) 0, Neutrophils # (Auto) 8.4H, Lymphocytes # (Auto) 0.9L, Monocytes # (Auto) 0.1, Eosinophils # (Auto) 0.0, Basophils # (Auto) 0.0, Immature Granulocyte # (Auto) 0.1, Sodium Level 138, Potassium Level 3.9, Chloride Level 105, Carbon Dioxide Level 24, Anion Gap 9, Blood Urea Nitrogen 11, Creatinine 0.89, Estimat Glomerular Filtration Rate 120, BUN/Creatinine Ratio 12, Glucose Level 146H, Calcium Level 9.2, Corrected Calcium 9.7, Total Bilirubin 0.4, Aspartate Amino Transf (AST/SGOT) 36H, Alanine Aminotransferase (ALT/SGPT) 116H, Alkaline Phosphatase 123, Total Protein 7.8, Albumin 3.4 Microbiology 03/04/23 Gram Stain, Resulted Pending 03/04/23 Anaerobic Culture, Resulted Pending 03/04/23 Surgical Culture - Preliminary, Resulted Staphylococcus aureus 03/04/23 MRSA Screen - Final, Complete MRSA not isolated Pending Labs Microbiology Date/Time Source Procedure Growth Status 03/04/23 16:20 Body Site, Not Otherwise Spec. Lip Gram Stain Pending Resulted 03/04/23 16:20 Body Site, Not Otherwise Spec. Lip Anaerobic Culture Pending Resulted 03/04/23 16:20 Surgical Culture - Preliminary Staphylococcus aureus Resulted 03/04/23 13:55 Nasal MRSA Screen - Final MRSA not isolated Complete Laboratory Tests 03/03/23 18:10: White Blood Count 19.2, Red Blood Count 4.98, Hemoglobin 14.4, Hematocrit 42, Mean Corpuscular Volume 85, Mean Corpuscular Hemoglobin 29, Mean Corpuscular Hemoglobin Concent 34, Red Cell Distribution Width 12.3, Platelet Count 300, Mean Platelet Volume 10.8, Immature Granulocyte % (Auto) 1, Neutrophils (%) (Aut o) 76, Lymphocytes (%) (Auto) 12, Monocytes (%) (Auto) 7, Eosinophils (%) (Auto) 4, Basophils (%) (Auto) 1, Neutrophils # (Auto) 14.5, Lymphocytes # (Auto) 2.4, Monocytes # (Auto) 1.3, Eosinophils # (Auto) 0.9, Basophils # (Auto) 0.1, Immature Granulocyte # (Auto) 0.1, Neutrophils % (Manual) 75, Lymphocytes % (Manual) 13, Monocytes % (Manual) 4, Eosinophils % (Manual) 8, Blood Morphology Comment NORMAL, Erythrocyte Sedimentation Rate 78, Sodium Level 135, Potassium Level 3.1, Chloride Level 98, Carbon Dioxide Level 25, Anion Gap 12, Blood Urea Nitrogen 10, Creatinine 1.08, Estimat Glomerular Filtration Rate 96, BUN/Creatinine Ratio 9, Glucose Level 115, Lactic Acid Level 0.87, Calcium Level 9.7, Corrected Calcium 9.7, Total Bilirubin 0.6, Aspartate Amino Transf (AST/SGOT) 96, Alanine Aminotransferase (ALT/SGPT) 213, Alkaline Phosphatase 160, C-Reactive Protein High Sensitivity 18.64, Total Protein 9.0, Albumin 4.0 03/04/23 05:05: White Blood Count 15.2, Red Blood Count 4.68, Hemoglobin 13.4, Hematocrit 40, Mean Corpuscular Volume 85, Mean Corpuscular Hemoglobin 29, Mean Corpuscular Hemoglobin Concent 34, Red Cell Distribution Width 12.3, Platelet Count 286, Mean Platelet Volume 10.6, Immature Granulocyte % (Auto) 0, Neutrophils (%) (Auto) 73, Lymphocytes (%) (Auto) 14, Monocytes (%) (Auto) 7, Eosinophils (%) (Auto) 6, Basophils (%) (Auto) 1, Neutrophils # (Auto) 11.0, Lymphocytes # (Auto) 2.0, Monocytes # (Auto) 1.1, Eosinophils # (Auto) 0.9, Basophils # (Auto) 0.1, Immature Granulocyte # (Auto) 0.1, Sodium Level 140, Potassium Level 3.2, Chloride Level 105, Carbon Dioxide Level 24, Anion Gap 11, Blood Urea Nitrogen 10, Creatinine 0.96, Estimat Glomerular Filtration Rate 110, BUN/Creatinine Ratio 10, Glucose Level 104, Calcium Level 9.0, Corrected Calcium 9.4, Total Bilirubin 0.6, Aspartate Amino Transf (AST/SGOT) 60, Alanine Aminotransferase (ALT/SGPT) 147, Alkaline Phosphatase 134, Total Protein 7.6, Albumin 3.5 03/04/23 13:30: SARS-CoV-2 RNA (RT-PCR) Not Detected 03/05/23 05:04: White Blood Count 9.4, Red Blood Count 4.63, Hemoglobin 13.2, Hematocrit 40, Mean Corpuscular Volume 86, Mean Corpuscular Hemoglobin 29, Mean Corpuscular Hemoglobin Concent 33, Red Cell Distribution Width 12.2, Platelet Count 322, Mean Platelet Volume 10.8, Immature Granulocyte % (Auto) 1, Neutrophils (%) (Auto) 89, Lymphocytes (%) (Auto) 9, Monocytes (%) (Auto) 1, Eosinophils (%) (Auto) 0, Basophils (%) (Auto) 0, Neutrophils # (Auto) 8.4, Lymphocytes # (Auto) 0.9, Monocytes # (Auto) 0.1, Eosinophils # (Auto) 0.0, Basophils # (Auto) 0.0, Immature Granulocyte # (Auto) 0.1, Sodium Level 138, Potassium Level 3.9, Chloride Level 105, Carbon Dioxide Level 24, Anion Gap 9, Blood Urea Nitrogen 11, Creatinine 0.89, Estimat Glomerular Filtration Rate 120, BUN/Creatinine Ratio 12, Glucose Level 146, Calcium Level 9.2, Corrected Calcium 9.7, Total Bilirubin 0.4, Aspartate Amino Transf (AST/SGOT) 36, Alanine Aminotransferase (ALT/SGPT) 116, Alkaline Phosphatase 123, Total Protein 7.8, Albumin 3.4 Discharge Home Medications: Active Scripts Active Clindamycin HCl 300 Mg Capsule 300 Mg PO TID Instructions to patient/family Please see electronic discharge instructions given to patient. ALMAZ CAROLINA DO Mar 05, 2023 11:38
[2023-03-05 13:15] VITALS: BP 116/68
--- NOTE | 2023-03-26 00:11 | OPERATIVE REPORT ---
DATE OF SERVICE: 03/04/2023 OPERATIVE REPORT AND COMBINED CONSULT SERVICE: juice bar team member. CONSULT: I was called to evaluate the patient, who has a rather large edematous upper lip. He has a grossly carious teeth #8 and 9 as well as essentially the remaining maxillary teeth [ ] extremely edematous approximately 3 cm from anterior to posterior involve the entire upper lip from the commissure to commissure, states this had started swelling up proximally over the weekend. He was then seen at the [facility] emergency room and admitted after speaking with me, I advised him I would see him the following day as they started him on intravenous antibiotics. After [ ] he indeed had a very distended, edematous and painful to palpation upper lip. Teeth #8 and 9 are grossly carious with pulpal involvement and could also be certainly the source of the infection. After speaking with him extensively, he says that it has been going on and he has also had an abscess around his lower eyelid on his left side [ ] approximately 6 months ago. I advised him that this was unlikely to be related to that incident. After this, he was consented for surgery and then made aware that we need operated on him. He was scheduled for surgery at the earliest opportune time. OR REPORT SERVICE: juice bar team member. SURGEON: Haley Weber DDS SET DECORATOR: Shruthi Esquivel. ANESTHESIA: General endotracheal. COMPLICATIONS: There were no complications. BLOOD LOSS: Minimal. FLUIDS: 900 mL crystalloid. Instrument, needle and sponge count were correct x2. Culture specimens were taken for Gram stain, anaerobic and aerobic with sensitivity as well as a biopsy. DESCRIPTION OF PROCEDURE: The patient was taken to the operating room and placed in the operating table. Anesthesia was induced via orotracheal intubation without difficulty. Once this was secured, I deposited local anesthesia in and around anterior maxilla as well as in bilaterally in the canine fossa. After this allowed to take effect, I was able to luxate and remove teeth #8 and 9, which were grossly carious and involving the pulp with the fistula tract extending in the midline of his upper lip. After this, we used saline to flush these extraction sockets out and we then turned our attention to the maxillary lip in which case he had started to have some minor drainage from a fistula tract. Then, I was able to explore this, which tracked essentially from ala of the nose from the lateral standpoint to the contralateral ala and was able to tunnel under and remove any purulent drainage at that point. [ ], the most pus was just from [ ] retract as well as the extraction sockets. The remainder of the lip was just continued to be extremely edematous and did not have a traditional abscess cavity. So once I have been able to open up the percutaneous fistula on the right side as well and then the abscess track that was extended from one [ ] to the contralateral [ ], we again irrigated with normal saline and at this time with a 30% hydrogen peroxide and this was placed and then we placed one 3-0 chromic gut to [ ] back together. This completed our procedure. We also placed 2 sutures to close the extraction sockets of teeth #8 and 9. Once this had been done, we placed a throat pack, this was removed and then he was allowed to be extubated in the operating room after breathing spontaneously and then transported to the recovery room assessed to have stable vital signs, breathing spontaneously with a pulse ox of 99%. Job ID: [id number] DocumentID: [id number] Dictated Date: 03/25/2023 15:50:30 Latin American Studies Director Date: 03/25/2023 23:30:00 Dictated By: HALEY WEBER DDS
== END 2023-03-05 13:05 | disposition home or self-care (01) ==
LOC: EDUNIT# 17:30 → ER 17:34 → INTOOBSV 20:22 → 4TH 20:22 → UNDOADMOB 20:22 → 4TH 20:25 → UNDODISOB 03-05 13:05
PROVIDERS: ADMIT Internal Medicine; ATTEND Internal Medicine
DX: K13.0 Diseases of lips (principal); K02.9 Dental caries, unspecified; H00.035 Abscess of left lower eyelid; E87.6 Hypokalemia
CPT/HCPCS: 36415; 70491; 80053; 83605; 85007; 85025; 85027; 85652; 86141; 87070; 87075; 87077; 87081; 87186; 87205; 87636; 88305; 88312; 94760; 96361; 96365; 96366; 96372; 96375; 96376; G0378